=== PATIENT | male | born 1980 | race American Indian/Alaskan Native ===

== ENCOUNTER 2016-03-15 05:55 | Emergency (ER) | payer SELFPAY ==
[2016-03-15] MEDS ORDERED: MOTRIN PO ONE (09:10)
[2016-03-15] MEDS ORDERED: ZOFRAN ODT ONE (09:13)
--- NOTE | 2016-03-15 09:13 | Emergency Department Report ---
ED Fall HPI - General Chief Complaint: Fall Stated Complaint: FALL Time Seen by Provider: 03/15/16 09:05 Source: patient Mode of arrival: Wheelchair - History of Present Illness Initial Comments: 35-year-old male past medical history none presents with complaint of pain in his right wrist right shoulder and lower back status post fall. Patient states they were shopping at [employer] earlier this morning and slipped backward on some powdered food/what he claims was [employer]der[employer]id on the floor fell backward onto his lower back. Denies any loss of consciousness was able to get up on his own. Patient is awake alert and oriented 3 does not appear to be in acute distress however is complaining of lower back pain pain in his right wrist and pain in his right shoulder. Denies any lacerations. Patient able to stand and walk without assistance. MD Complaint: fall Onset/Timin -: hour(s) Fall From: standing Fall Witnessed: yes, by bystander Place Fall Occurred: other (store) Loss of Consciousness: none Prolonged Down Time?: no Symptoms Prior to Fall: none Location: back, other (right wrist and shoulder) Location - Extremities: Right: Shoulder, Hand Severity: moderate Severity scale (0 -10): 6 Quality: aching Context: tripped/slipped (claims he slipped on powder on ground) Associated Symptoms: denies - Related Data Previous Rx's Medication Instructions Recorded Last Taken Type Cyclobenzaprine [Flexeril] 10 mg PO TID PRN #15 tablet 03/15/16 Unknown Rx Ibuprofen [Motrin] 600 mg PO Q8H PRN #30 tablet 03/15/16 Unknown Rx Ondansetron [Zofran Odt] 4 mg PO Q8H PRN #10 tab.rapdis 03/15/16 Unknown Rx Allergies Allergy/AdvReac Type Severity Reaction Status Date / Time No Known Allergies Allergy Unverified 03/15/16 06:08 ED Review of Systems ROS: Stated complaint: FALL Other details as noted in HPI Constitutional: denies: chills, fever Eyes: denies: eye pain, eye discharge, vision change ENT: denies: ear pain, throat pain Respiratory: denies: cough, shortness of breath, wheezing Cardiovascular: denies: chest pain, palpitations Endocrine: no symptoms reported Gastrointestinal: denies: abdominal pain, nausea, diarrhea Genitourinary: denies: urgency, dysuria Musculoskeletal: denies: back pain, joint swelling, arthralgia Skin: denies: rash, lesions Neurological: denies: headache, weakness, paresthesias Psychiatric: denies: anxiety, depression Hematological/Lymphatic: denies: easy bleeding, easy bruising ED Past Medical Hx - Past Medical History Previous Medical History?: No - Surgical History Past Surgical History?: No - Social History Smoking Status: Never Smoker Substance Use Type: None - Medications Home Medications: Home Medications Medication Instructions Recorded Confirmed Last Taken Type Cyclobenzaprine [Flexeril] 10 mg PO TID PRN #15 tablet 03/15/16 Unknown Rx Ibuprofen [Motrin] 600 mg PO Q8H PRN #30 tablet 03/15/16 Unknown Rx Ondansetron [Zofran Odt] 4 mg PO Q8H PRN #10 tab.rapdis 03/15/16 Unknown Rx ED Physical Exam - General Limitations: No Limitations General appearance: alert, in no apparent distress - Head Head exam: Present: atraumatic, normocephalic - Eye Eye exam: Present: normal appearance, PERRL, EOMI - ENT ENT exam: Present: mucous membranes moist - Neck Neck exam: Present: normal inspection - Respiratory Respiratory exam: Present: normal lung sounds bilaterally. Absent: respiratory distress - Cardiovascular Cardiovascular Exam: Present: regular rate, normal rhythm. Absent: systolic murmur, diastolic murmur, rubs, gallop - GI/Abdominal GI/Abdominal exam: Present: soft, normal bowel sounds - Rectal Rectal exam: Present: deferred - Extremities Exam Extremities exam: Present: normal inspection, full ROM, normal capillary refill - Expanded Upper Extremity Exam Right Shoulder Exam: Present: normal inspection, full ROM Upper Arm exam: Present: normal inspection, full ROM Elbow exam: Present: normal inspection, full ROM Forearm Wrist exam: Present: normal inspection, full ROM, tenderness (she has some tenderness when flexing and extending his right wrist. No snuffbox tenderness on palpation on clinical exam motion all fingers intact patient able to make a fist and open against resistance.) Hand Wrist exam: Present: normal inspection, full ROM, tenderness (minor tenderness on flexion and extension but is able to actively and passively move his right hand and wrist and forearm. No difficulty pronating and supinating no snuffbox tenderness) - Back Exam Back exam: Present: normal inspection, paraspinal tenderness (minor paraspinal tenderness L spine no midline tenderness. And tenderness on palpation of cervical or thoracic spine) - Neurological Exam Neurological exam: Present: alert, oriented X3, CN II-XII intact, normal gait - Psychiatric Psychiatric exam: Present: normal affect, normal mood - Skin Skin exam: Present: warm, dry, intact, normal color. Absent: rash ED Course Vital Signs 03/15/16 03/15/16 06:09 10:13 Temperature 98.1 F 97.8 F Pulse Rate 62 88 Respiratory 18 18 Rate Blood Pressure 138/93 Blood Pressure 160/103 [Left] O2 Sat by Pulse 97 100 Oximetry ED Medical Decision Making - Medical Decision Making A/P: Mechanical fall, wrist sprain, shoulder sprain, lower back strain, muscular skeletal pain 1-Motrin when necessary for pain, Flexeril when necessary, Zofran when necessary 2-follow-up with primary care and orthopedics. I placed patient in right wrist splint for comfort. There are no clinical signs of fracture or any fractures as reported on x-rays. Snuffbox tenderness. Range of motion right hand wrist fingers forearm elbow and shoulder fully intact, distal pulses intact distal capillary refill intact all fingers. No neurovascular compromise on clinical exam 3-RICE therapy, farhat wrap 4- nexus and [place] C-spine criteria negative for imaging C-spine/brain/head Critical care attestation.: If time is entered above; I have spent that time in minutes in the direct care of this critically ill patient, excluding procedure time. ED Disposition Clinical Impression: Musculoskeletal pain Fall Qualifiers: Encounter type: initial encounter Qualified Code(s): W19.XXXA - Unspecified fall, initial encounter Wrist sprain Qualifiers: Encounter type: initial encounter Laterality: right Qualified Code(s): S63.501A - Unspecified sprain of right wrist, initial encounter Sprain of shoulder, right Qualifiers: Encounter type: sequela Shoulder sprain type: unspecified sprain Qualified Code (s): S43.401S - Unspecified sprain of right shoulder joint, sequela Disposition: DISCHARGED TO HOME OR SELFCARE Is pt being admited?: No Does the pt Need Aspirin: No Condition: Stable Instructions: RICE Therapy (ED), Wrist Sprain (ED), Shoulder Sprain (ED) Additional Instructions: Advised patient to follow up with orthopedics Prescriptions: Cyclobenzaprine [Flexeril] 10 mg PO TID PRN #15 tablet PRN Reason: Muscle Spasm Ibuprofen [Motrin] 600 mg PO Q8H PRN #30 tablet PRN Reason: Pain Ondansetron [Zofran Odt] 4 mg PO Q8H PRN #10 tab.rapdis PRN Reason: Nausea Referrals: PRIMARY CAREMD [Primary Care Provider] - 3-5 Days ANDRE BROUSSARD MD [Staff Physician] - 3-5 Days [facility] [Outside] - 3-5 Days Forms: Work/School Release Form(ED) Time of Disposition: 10:31
[2016-03-15] MEDS ORDERED: ZOFRAN ODT PO ONE (09:14)
--- NOTE | 2016-03-15 09:53 | XRay Report ---
Right wrist: History: Chest pain. Findings: No articular abnormality. The radiocarpal and intercarpal joints appears unremarkable. Soft tissue calcification noted measuring 3 cm in diameter adjacent to the distal radius. Impression: Findings as described. If clinically indicated CT scan or MRI scan may be
--- NOTE | 2016-03-15 09:55 | XRay Report ---
Lumbar NT views: History: Status post fall and pain. Findings: Mild thoracolumbar scoliosis with convexity to left. [place] of scoliosis at T11. Normal height of vertebral bodies and intervertebral disc. Normal articular surfaces. No fracture. No paravertebral mass. Impression: Scoliosis. No acute bony changes.
--- NOTE | 2016-03-15 09:56 | XRay Report ---
Right shoulder 3 views: History: shoulder pain. Status post fall. Findings: Mild arthritic changes a.c. joint. Glenohumeral joint appears normal. No fracture dislocation or soft tissue calcification. Next Impression: Mild arthritic changes a.c. joint. A
[2016-03-15 10:14] VITALS: BP 160/103
== END 2016-03-15 10:42 | disposition home or self-care (01) ==
LOC: ED 05:55
DX: S63.501A Unspecified sprain of right wrist, initial encounter (principal); S43.401A Unspecified sprain of right shoulder joint, initial encounter; M79.1 Myalgia; W18.39XA Other fall on same level, initial encounter; Y93.89 Activity, other specified; Y99.8 Other external cause status; Y92.89 Other specified places as the place of occurrence of the external cause
CPT/HCPCS: 72100; Q0162